=== PATIENT | female | born 1950 | race Caucasian/White ===

== ENCOUNTER 2018-04-26 05:45 | Emergency (ER) | payer OTHER ==
[~2018-04-26] VITALS: Ht 167.6 cm; Wt 81.6 kg
[~2018-04-26 05:45] MED LIST: CIPRO500 MG PO; CRESTOR20 MG; CYMBALTA30 MG; FAMOTIDINE40 MG; OMEPRAZOLE40 MG; PROTONIX40 MG; SYNTHROID50 MCG; TRAZODONE HCL50 MG
== END 2018-04-26 11:48 | disposition home or self-care (01) ==
LOC: ER 05:45
DX: K52.89 Other specified noninfective gastroenteritis and colitis (principal)

== ENCOUNTER 2024-07-28 08:15 | Emergency (ER) | payer OTHER, BC ==
[~2024-07-28] VITALS: Ht 175.3 cm; Wt 78.9 kg
[~2024-07-28 08:15] MED LIST changes: +AZITHROMYCIN250 MG PO; +PERIDEX473 ML PO
[2024-07-28] MEDS ORDERED: GUAIFENESIN/DEXTROMETHORPHAN 10ML BLIST.PACK PO ONE (09:00)
[2024-07-28] MEDS ORDERED: DEXAMETHASONE SODIUM PHOSPHATE 4 MG/ML VIAL IM ONE (09:00)
[2024-07-28] MEDS ORDERED: AZITHROMYCIN 500 MG TABLET PO ONE (09:00)
[2024-07-28 09:44] LABS: HEMATOCRIT 36.9 % (36.0-45.00); HEMOGLOBIN 12.5 g/dL (12.0-15.00); MEAN CELL VOLUME 84.4 fL (80.00-100.00); MEAN CORPUSCULAR HEMOGLOBIN 28.5 pg (27.00-32.0); MEAN CORPUSCULAR HGB CONC 33.8 g/dl (32.0-36.0); PLATELET COUNT 256 K/uL (150-450); RED BLOOD COUNT 4.37 M/uL (4.00-6.00); RED CELL DISTRIBUTION WIDTH 15.2 % (11.5-14.5)
[2024-07-28] MEDS ORDERED: TUSNEL LIQUID178 ML PO (11:00)
[2024-07-28] MEDS ORDERED: OSEL75CA PO (11:00)
[2024-07-28] MEDS ORDERED: ONDANSETRON ODT8 MG PO (11:05)
== END 2024-07-28 11:05 | disposition home or self-care (01) ==
LOC: ER 08:15
PROVIDERS: General Practice
DX: J10.1 Influenza due to other identified influenza virus with other respiratory manifestations (principal); Z20.822 Contact with and (suspected) exposure to COVID-19
CPT/HCPCS: 36415; 71046; 96372; 99283; J1100